=== PATIENT | male | born 1945 | race Caucasian/White ===

== ENCOUNTER → 2020-07-15 | Outpatient (CLI) | payer MEDICARE ==
[~2020-07-15] VITALS: Ht 177.8 cm; Wt 72.3 kg
[2020-07-15] VITALS (10 sets, daily range): BP systolic 100–160; BP diastolic 54–96
[2020-07-15 11:20] LABS: HEMATOCRIT 41.2 % (42.0-52.0); HEMOGLOBIN 14.1 gm/dL (14.0-18.0); MCH 31.9 pg (26.0-34.0); MCHC 34.3 g/dL (28.0-37.0); MCV 92.9 fL (80.0-100.0); MPV 8.4 fl. (7.2-11.1); RBC 4.44 mil/uL (4.50-6.00); RDW-CV 12.9 % (10.5-14.5); WBC 6.6 thou/uL (4.0-11.0)
[2020-07-15 11:29] LABS: ANION GAP 5 mmol/L (7-16); APTT 25.4 Seconds (25.0-31.3); BUN 18 mg/dL (7-18); CALCIUM 8.9 mg/dL (8.5-10.1); CHLORIDE 105 mmol/L (98-107); CO2 30 mmol/L (21-32); CREATININE 0.9 mg/dL (0.6-1.3); GLUCOSE 94 mg/dL (70-99); INR 1.1; POTASSIUM 3.8 mmol/L (3.5-5.1); PROTIME 10.9 Seconds (9.20-11.50); SODIUM 140 mmol/L (136-145)
[2020-07-15 11:35] LABS: ALKALINE PHOSPHATASE 51 U/L (46-116); CHOLESTEROL 195 mg/dL (<200); HDL CHOLESTEROL 35 mg/dL (>40); LDL CHOLESTEROL 142 mg/dL (<100); SGOT 20 U/L (15-37); SGPT 23 U/L (30-65); TC:HDL 5.6 Ratio (Not establshd); TOTAL BILIRUBIN 0.6 mg/dL (<0.1-1.0); TOTAL PROTEIN 7.6 g/dL (6.4-8.2); TRIGLYCERIDE 94 mg/dL (<150); VLDL 19 mg/dL (<40)
[2020-07-15 11:36] LABS: SERUM ASSESSMENT Clear
--- NOTE | 2020-07-15 17:56 | EKG ---
[place] [address] ELECTROCARDIOGRAM REPORT Name: NOA NARANJO Room: [place] [address] ADM IN [facility].#: [id number] Admission: 07/15/20 Attend Phys: Thad Garnett Discharge: Date of : 49 Date of Service: 07/15/20 1204 Report #: [id number] THIS REPORT FOR: //name// [facility] Test Date: 2020-07-15 Test Time: 12:04:31 Pat Name: NOA NARANJO Department: Room: [facility] Gender: M Greenhouse Or Nursery Transplanter: : 1945 Requested By: Jayy Hopson Order Number: [id number] Ewa MD: Marek Rodney Measurements Intervals [place] Rate: 71 P: MS: QRS: -26 QRSD: 116 T: -27 QT: 414 QTc: 450 Interpretive Statements Atrial fibrillation Nonspecific intraventricular conduction delay Nonspecific T abnormalities, inferior leads No previous ECG available for comparison Electronically Signed On 07-15-2020 17:56:15 CDT by Marek Rodney [email or web address] <ELECTRONICALLY SIGNED> By: Marek Rodney MD, FACC 07/15/20 1756 1204 1204 Marek Rodney MD, FACC /EPI
--- NOTE | 2020-07-16 13:33 | CARD ---
[address] [address] CARDIAC CATH REPORT Name: NOA NARANJO [id number] Admission: 07/15/20 Attend Phys: Jayy Hopson MD, Discharge: Date of : 49 Report #: [id number] THIS REPORT FOR: //name// cc: Anurag Sullivan MD, [place] S. MD ~ APPROVED REPORT Study performed: 07/15/2020 13:16:08 Patient Details Patient Status: Out-Patient Room #: The patient is a 74 year-old male Event Personnel Jayy Hopson National Sales Manager, River Piña RN Epitaxial Reactor Operator, Godwin Mack Scrub, Elyssa Sky RTR Monitor Procedures Performed Art Access - R femoral artery, Left Heart Cath w/or w/o Coronaries LHC, Hemostasis w/ Mynx Indication Stable angina Risk Factors Family History, Hypercholesterolemia Procedure Narrative The patient was brought electively to the Cardiac Catheterization Laboratory and was prepped and draped in a sterile manner. The right femoral was infiltrated with 2% Lidocaine subcutaneous anesthesia. A 6F [place] sheath was inserted into the right femoral artery. Coronary angiography was performed using coronary diagnostic catheters. The right coronary system was accessed and visualized with a 6F JR4 catheter. The left coronary system was accessed and visualized with a 6F JL4 catheter. The left ventricle was accessed and visualized with a 6F Straight Pigtail catheter. Left ventricular/Aortic Valve gradient assessed via catheter pullback. Left ventriculogram was performed in BOYD projection. Pre-demployment femoral angiogram was performed . Closure device was deployed with a 6 Fr Mynx. The patient tolerated the procedure well and there were no complications associated with the procedure. [place] [address] CARDIAC CATH REPORT Name: YAMELNURIANOA Nation Cesar Room: [facility]#: [id number] Admission: 07/15/20 Attend Phys: Jayy Hopson MD, Discharge: Date of : 49 Report #: [id number] Intraoperative Conscious Sedation Sedation start time: 13:56 Case end Time: 14:20 Fentanyl 25 mcg Versed 2 mg Fluoro Time: 3.3 minutes Dose: DAP 08703 cGycm2 983 983 mGy Contrast Type and Amount: Visipaque 140 ml Diagnostic Cath Left Main 0% narrowing LAD 50% very proximal stenosis with tandem 90% proximal stenoses and 70% mid LAD stenosis Circumflex Tortuous 90% mid circumflex stenosis with total occlusion of the second marginal branch which fills via left to left collaterals in retrograde fashion Right Coronary 100% very proximal occlusion with mufk-ko-vnhla collaterals filling the distal right coronary artery predominantly through collaterals from septal supervisor type bar and segment branches of the LAD Left Ventriculography The left ventricle is normal in size with Mildly decreased contractility. The left ventricular ejection fraction is estimated to be 45-50%. Left ventricular wall motion abnormalities are present. There is no mitral insufficiency. Inferobasilar hypo - akinesis is noted Hemodynamics The aortic pressure is 146/74 mmHg with a mean of 106 mmHg. The left ventricular pressure is 141/-1 mmHg with a mean of mmHg. The left ventricular end diastolic pressure is 8 mmHg. Conclusion 1. Severe coronary artery disease characterized by the following: A 50% very proximal with tandem 90% proximal LAD stenoses and 70% mid vessel stenosis B 90% tortuous mid circumflex narrowing with total occlusion of the second marginal branch which fills via left to left collaterals in retrograde fashion C dominant right coronary artery which is totally occluded in its very proximal segment with [id number]-[id number] collateral filling of the distal [place] [address] CARDIAC CATH REPORT Name: NOA NARANJO Room: [facility]#: [id number] Admission: 07/15/20 Attend Phys: Jayy Hopson MD, Discharge: Date of : 49 Report #: [id number] 2. Mild impairment in global LV function, estimated ejection fraction being 45 - 50% with inferobasilar hypo - akinesis 3. Normal left-sided hemodynamic study Recommendations Cardiac Risk Reduction Program CABG Diagnostic Cath Approved by: Jayy Hopson MD Date/Time: 07/16/2020 13:31:21 <ELECTRONICALLY SIGNED> By: Jayy Hopson MD, FACC 07/16/20 1333 32 32Jayy Hopson MD, FACC /INF
== END | disposition home or self-care (01) ==
LOC: M.CL 10:18 → M.TBA-ER 14:28 → M.CL 14:28
PROVIDERS: ATTEND Internal Medicine
DX: I25.118 Atherosclerotic heart disease of native coronary artery with other forms of angina pectoris (principal); R94.39 Abnormal result of other cardiovascular function study; Z72.89 Other problems related to lifestyle; Z79.899 Other long term (current) drug therapy; Z98.890 Other specified postprocedural states; Z82.49 Family history of ischemic heart disease and other diseases of the circulatory system; Z20.828 Contact with and (suspected) exposure to other viral communicable diseases